=== PATIENT | female | born 1965 | race Caucasian/White ===

== ENCOUNTER 2019-01-14 12:29 | Emergency (ER) | payer BC, OTHER ==
[~2019-01-14] VITALS: Ht 152.4 cm; Wt 56.9 kg
[~2019-01-14 12:29] MED LIST: IBUP-1542 PO
[2019-01-14 12:31] VITALS: Ht 152.4 cm; Wt 56.9 kg
--- NOTE | 2019-01-14 12:49 | EN ---
Date/Time of Note Date/Time of Note DATE: 01/14/19 TIME: 12:48 ER Progress Note [id number]old female with 3-day history of neck pain rating to the left arm. Also has multiple complaints of headache and dizziness. EKG shows no STEMI. Otherwise healthy. ED 2 appropriate. RAVI TO MD Jan 14, 2019 12:49
[2019-01-14] MEDS ORDERED: morphine 2 MG INJ IV STA (12:54)
[2019-01-14] MEDS ORDERED: ONDANSETRON 4 MG INJ IV STA (12:54)
--- NOTE | 2019-01-14 12:58 | ERD ---
ER Documentation Chief Complaint Chief Complaint headache and dizziness x 3 days, left arm and neck pain HPI The patient is a 53-year-old female, presenting to the ER because of intermittent headache, neck discomfort and left arm tingling and dizziness and nausea for the last 3 days. She had similar symptoms previously, denies fever, blurred vision, chills, syncope, near syncope, chest pain, dyspnea, abdominal pain, vomiting, dysuria. She does not smoke nor drink Past medical history/surgical history: None ROS All systems reviewed and are negative except as per history of present illness. Medications Home Meds Active Scripts Ibuprofen* (Motrin*) 600 Mg Tab, 600 MG PO Q6H PRN for PAIN, #20 TAB Prov:CANDELARIA HALL MD 01/14/19 Reported Medications [None] No Conflict Check 05/24/10 Allergies Allergies: Coded Allergies: No Known Drug Allergies (Verified Allergy, Mild, 05/24/10) PMhx/Soc History of Surgery: No Anesthesia Reaction: No Hx Neurological Disorder: No Hx Respiratory Disorders: No Hx Cardiac Disorders: Yes (HIGH CHOLESTEROL) Hx Psychiatric Problems: No Hx Miscellaneous Medical Probl: No Hx Alcohol Use: No Hx Substance Use: No Hx Tobacco Use: No Physical Exam Vitals Vital Signs Date Temp Pulse Resp B/P (MAP) Pulse Ox O2 O2 Flow FiO2 Time Delivery Rate 01/14/19 98.7 61 16 112/69 100 Room Air 14:28 (83) 01/14/19 99.0 70 18 149/65 99 12:31 (93) Physical Exam Const: No acute distress. Head: Atraumatic. Eyes: Normal Conjunctiva. ENT: Normal External Ears, Nose and Mouth. Neck: Full range of motion. No meningismus. Resp: Clear to auscultation bilaterally. Cardio: Regular rate and rhythm. Abd: Soft, non distended, normal bowel sounds, non tender. Skin: No petechiae or rashes. Back: No midline or flank tenderness. Ext: No cyanosis, or edema. Neur: Awake and alert. No focal deficit Psych: Emotional Result Diagram: 01/14/19 1307 01/14/19 1307 Results 24 hrs Laboratory Tests Test 01/14/19 13:07 01/14/19 13:44 White Blood Count 9.6 10^3/ul Red Blood Count 4.18 10^6/ul Hemoglobin 12.5 g/dl Hematocrit 38.6 % Mean Corpuscular Volume 92.3 fl Mean Corpuscular Hemoglobin 29.9 pg Mean Corpuscular Hemoglobin Concent 32.4 g/dl Red Cell Distribution Width 13.2 % Platelet Count 260 10^3/UL Mean Platelet Volume 11.3 fl Immature Granulocytes % 0.200 % Neutrophils % 50.2 % Lymphocytes % 27.6 % Monocytes % 8.9 % Eosinophils % 12.7 % Basophils % 0.4 % Nucleated Red Blood Cells % 0.0 /100WBC Immature Granulocytes # 0.020 10^3/ul Neutrophils # 4.8 10^3/ul Lymphocytes # 2.7 10^3/ul Monocytes # 0.9 10^3/ul Eosinophils # 1.2 10^3/ul Basophils # 0.0 10^3/ul Nucleated Red Blood Cells # 0.0 10^3/ul Prothrombin Time 12.3 Sec Prothrombin Time Ratio 1.0 INR International Normalized Ratio 0.90 Activated Partial Thromboplast Time 29.7 Sec Sodium Level 141 mmol/L Potassium Level 4.5 mmol/L Chloride Level 105 mmol/L Carbon Dioxide Level 29 mmol/L Anion Gap 7 Blood Urea Nitrogen 15 mg/dl Creatinine 0.68 mg/dl Est Glomerular Filtrat Rate mL/min > 60 mL/min Glucose Level 96 mg/dl Calcium Level 9.5 mg/dl Troponin I < 0.012 ng/ml Bedside Urine pH (LAB) 7.0 Bedside Urine Protein (LAB) Negative Bedside Urine Glucose (UA) Negative Bedside Urine Ketones (LAB) Negative Bedside Urine Blood Negative Bedside Urine Nitrite (LAB) Negative Bedside Urine Leukocyte Esterase (L Negative Current Medications Medications Dose Sig/Marlena Start Time Status Last (Trade) Ordered Route PRN Stop Time Admin Dose Reason Admin Morphine 2 mg ONCE STAT 01/14/19 DC 01/14/19 Sulfate IV 12:54 01/14/19 13:34 (morphine) 12:56 Ondansetron 4 mg ONCE STAT 01/14/19 DC 01/14/19 HCl (Zofran IV 12:54 01/14/19 13:34 Inj) 12:56 Procedures/MDM [place] [id number] Radiology Main Line: [phone] DIAGNOSTIC IMAGING REPORT Patient: BHUPENDRA WARD : 1965 Age: 53 Sex: F MR #: [id number] DOS: 01/14/19 1254 Ordering MD: CANDELARIA HALL MD Location: [facility] Room/Bed: PROCEDURE: CT Brain without contrast. CLINICAL INDICATION: Pain, headache TECHNIQUE: Routine CT scan of the brain was performed on a high resolution multi detector scanner without intravenous contrast. One or more of the following dose reduction techniques were used: Automated exposure control; Adjustment of the mA and/or kV according to patient size; Use of iterative reconstruction technique. CTDI = 39 mGy. DLP = 554 mGy-cm. DICOM images are available. COMPARISON: No prior relevant examinations are available for comparison. FINDINGS: Hemorrhage: No evidence of intracranial hemorrhage. Acute ischemic changes: No evidence of acute ischemic changes. Mass effect: Cerebellar tonsils are mildly developmentally low-lying by 2 - 3 mm. Parenchymal volume: Within normal limits for age. Ventricular system: Concordant with parenchymal volume. 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 2 mm calcification of the head of the caudate nucleus on the right. Extracranial soft tissues: Unremarkable. Calvarium: No fractures. Paranasal sinuses: Visualized paranasal sinuses are clear. Mastoid air cells: Visualized mastoid air cells are clear. IMPRESSION: No acute intracranial abnormalities. 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 Cerebellar tonsils are mildly developmentally low-lying by 2 - 3 mm. RPTAT: AADD .Deonte Hines MD, MD Date Time Electronically viewed and signed by .Deonte Hines MD, on 01/14/2019 13:21 .B/ CC: CANDELARIA HALL MD [id number] [place] [id number] Radiology Main Line: [phone] DIAGNOSTIC IMAGING REPORT Patient: BHUPENDRA WARD : 1965 Age: 53 Sex: F MR #: [id number] DOS: 01/14/19 1254 Ordering MD: CANDELARIA HALL MD Location: [facility] Room/Bed: PROCEDURE: XR Chest AP portable CLINICAL INDICATION: Cough TECHNIQUE: An AP portable radiograph of the chest was submitted. COMPARISON: None available FINDINGS: Support Hardware: None Cardiovascular: The cardiovascular silhouette appears unremarkable. Lung Smith: The lung smith and pleural spaces are clear. Pleural Spaces: No pneumothorax or pleural effusion is identified. Osseous Structures: The osseous structures appear intact. Soft Tissues: Unremarkable IMPRESSION: Unremarkable portable chest without evidence of active cardiopulmonary disease. Physician Daniel Date Time Electronically viewed and signed by Physician Daniel on 01/14/2019 13:26 RH/ CC: CANDELARIA HALL MD [phone] EKG: Read by emergency physician Rate/Rhythm: Normal Sinus Rhythm 73 beats/min QRS, ST, T-waves: No ST elevation, no T inversion, SA Impression: Abnormal EKG MEDICAL MAKING DECISION: The patient is a 53-year-old female, presenting with acute headache of unclear etiology, cervical radiculopathy, was treated with morphine 2 mg IV for pain and Zofran 4mg IV for nausea with good response, is stable for present follow-up The differential diagnoses considered include but are not limited to subarachnoid hemorrhage, occult trauma, CVA, meningitis, encephalitis, hypertension, tension, migraine, cluster, narcotic withdrawal, cervical spine disease. Departure Diagnosis: Primary Impression: Headache Additional Impression: Cervical radiculopathy Condition: Good Comments She was discharged with Motrin I discussed the findings with the patient. I advised the patient to follow-up with the primary physician in about 1-2 days, sooner if needed and return if any concern, advised to have neck MRI for further evaluation. Disclaimer: Inadvertent spelling and grammatical errors are likely due to E HR/dictation software use and do not reflect on the overall quality of patient care. Also, please note that the electronic time recorded on this note does not necessarily reflect the actual time of the patient encounter. CANDELARIA HALL MD Jan 14, 2019 12:58
[2019-01-14 14:28] VITALS: BP 112/69; PULSE 61; RESP 16
== END 2019-01-14 14:29 | disposition home or self-care (01) ==
LOC: FTE 12:29
DX: R51 Headache (principal); M54.12 Radiculopathy, cervical region; M79.602 Pain in left arm
CPT/HCPCS: 36415; 70450; 71045; 80048; 81003; 84484; 85025; 85610; 85730; 87040; 93005; 96374; 96375; 99285; J2270; J2405